=== PATIENT | female | born 1975 | race Caucasian/White ===

== ENCOUNTER 2023-09-23 19:52 | Emergency (ER) | payer BC, MEDICAID ==
[2023-09-23 20:03] VITALS: BP 134/103; PULSE 80
[2023-09-23] MEDS: Orphenadrine 60 MG/2 ML Inj IV ONE (20:47)
[2023-09-23] MEDS: Lactated Ringers 1,000 ML IV ONE (20:47)
[2023-09-23] MEDS: Metoclopramide 10 MG/2 ML SDV IVPUSH ONE (20:47)
== END 2023-09-23 22:08 | disposition home or self-care (01) ==
LOC: DL.ED 19:52
DX: R10.32 Left lower quadrant pain (principal); R11.2 Nausea with vomiting, unspecified; Z79.899 Other long term (current) drug therapy
CPT/HCPCS: 76830; 96361; 96374; 96375; 99284; J2360; J2765; J7120